=== PATIENT | male | born 1960 | race Caucasian/White ===

== ENCOUNTER 2020-05-20 20:20 | Inpatient (IN) | payer BC ==
[2020-05-20] MEDS ORDERED: DEXAMETHASONE SOD PHOSPHATE 4 MG/1 ML VIAL IVPUSH ONE (22:07)
[2020-05-20 22:11] LABS: VENOUS BASE EXCESS 1.5 mmol/L (-2-2); VENOUS PH 7.401 (7.310-7.410)
[2020-05-20 22:39] LABS: BASO % 0.5 % (0-2.0); EOS % 0.3 % (0-4.5); MCH 31.9 pg (25.7-33.7); MEAN CELL VOLUME 91.3 fl (80-96); MEAN PLT VOLUME 8.2 fl (7.5-11.1); MONO % 11.5 % (3.8-10.2); NEUT % 73.7 % (42.8-82.8); PLATELET COUNT 211 K/MM3 (134-434); RBC 4.71 M/mm3 (4.00-5.60); RDW 12.9 % (11.9-15.9); WHITE BLOOD COUNT 4.7 K/mm3 (4.0-10.0)
[2020-05-20] MEDS ORDERED: DEXAMETHASONE SOD PHOSPHATE 10 MG/1 ML VIAL ONE (22:39)
[2020-05-20 22:48] LABS: CHLORIDE 100 mmol/L (98-107); INR 1.19 (0.83-1.09); POTASSIUM 3.7 mmol/L (3.5-5.1); PROTHROMBIN TIME (PATIENT) 14.3 SEC (9.7-13.0); SODIUM 133 mmol/L (136-145)
[2020-05-20 22:50] LABS: CALCIUM 8.5 mg/dL (8.5-10.1)
[2020-05-20 22:51] LABS: ACTIVATED PTT 30.3 SECONDS (25.2-36.5); ALBUMIN 3.3 g/dl (3.4-5.0); ANION GAP 6 MMOL/L (8-16); BLOOD UREA NITROGEN 19.2 mg/dL (7-18); CO2 27 mmol/L (21-32); GLUCOSE,RANDOM 107 mg/dL (74-106)
[2020-05-20 22:54] LABS: BILIRUBIN,DIRECT 0.3 mg/dL (0.0-0.2); CREATININE 0.9 mg/dL (0.55-1.3); SGOT/AST 47 U/L (15-37); SGPT/ALT 60 U/L (13-61)
[2020-05-20 22:56] LABS: BILIRUBIN,TOTAL 0.6 mg/dL (0.2-1); TOT PROT 7.2 g/dl (6.4-8.2)
[2020-05-20 22:57] LABS: ALK PHOS 79 U/L (45-117); LDH 346 U/L (87-246)
[2020-05-20 23:34] LABS: EPI CELLS 11 /uL (0-25.1); HYALINE CASTS 3 /uL (0-3.1); PH,URINE 5.5 (5.0-8.0); URINE APPEARANCE CLEAR; URINE BACTERIA 5 /uL (0-1359); URINE BILIRUBIN NEGATIVE (NEGATIVE); URINE COLOR YELLOW; URINE GLUCOSE (UA) NEGATIVE (NEGATIVE); URINE KETONE TRACE (NEGATIVE); URINE LEUK ESTERASE NEGATIVE (NEGATIVE); URINE NITRITE NEGATIVE (NEGATIVE); URINE PROTEIN 1+ (NEGATIVE); URINE RBC 9 /uL (0-23.9); URINE WBC 2 /uL (0-25.8)
[2020-05-21] MEDS ORDERED: ACETAMINOPHEN 325 MG TABLET (FP) PO PRN (00:17)
[2020-05-21 01:32] VITALS: BMI 28.9
[2020-05-21 07:42] LABS: POTASSIUM 4.7 mmol/L (3.5-5.1)
[2020-05-21 07:51] LABS: ALBUMIN 3.2 g/dl (3.4-5.0); CALCIUM 8.5 mg/dL (8.5-10.1); MAGNESIUM 2.3 mg/dL (1.8-2.4)
[2020-05-21 07:53] LABS: PHOSPHOROUS 4.3 mg/dL (2.5-4.9)
[2020-05-21 07:55] LABS: BILIRUBIN,TOTAL 0.7 mg/dL (0.2-1); TOT PROT 7.2 g/dl (6.4-8.2)
[2020-05-21 08:44] LABS: BASO % 0.3 % (0-2.0); HEMATOCRIT 42.7 % (35.4-49); MCH 32.1 pg (25.7-33.7); MEAN CELL VOLUME 91.6 fl (80-96); MEAN PLT VOLUME 8.6 fl (7.5-11.1); MONO % 5.9 % (3.8-10.2); NEUT % 83.8 % (42.8-82.8); PLATELET COUNT 223 K/MM3 (134-434); RBC 4.66 M/mm3 (4.00-5.60); RDW 12.8 % (11.9-15.9); WHITE BLOOD COUNT 3.8 K/mm3 (4.0-10.0)
[2020-05-21] MEDS ORDERED: PT OWN MED DRAWER 7, Y5N ONE ×3 (09:10→20:37)
[2020-05-21] MEDS: DEXAMETHASONE SOD PHOSPHATE 4 MG/1 ML VIAL IVPUSH SCH (09:14)
[2020-05-21] MEDS: CHOLECALCIFEROL (VIT D3) 400 UNIT (10 MCG) TABLET PO SCH (09:14)
[2020-05-21] MEDS: FAMOTIDINE 20 MG TABLET PO SCH (09:14)
[2020-05-21] MEDS: ZINC SULFATE 220 MG CAPSULE (FP) PO SCH (09:14)
[2020-05-21] MEDS: ENOXAPARIN NA (PORCINE) 40 MG/0.4 ML DISP.SYRIN SQ SCH (09:15)
[2020-05-21] MEDS: ASCORBIC ACID 250 MG TABLET (FP) PO SCH ×2 (09:24→21:04)
[2020-05-21 12:29] LABS: PLATELET ESTIMATE NORMAL
[2020-05-21] MEDS ORDERED: REMDESIVIR 200 MG in SODIUM CHLORIDE 210 ML IVPB ONE (15:00)
[2020-05-22 07:06] LABS: BASO % 0.2 % (0-2.0); EOS % 0.2 % (0-4.5); HEMOGLOBIN 15.1 GM/dL (11.7-16.9); LYMPH % 14.2 % (8-40); MCH 32.5 pg (25.7-33.7); MCHC 35.9 g/dl (32.0-35.9); MEAN CELL VOLUME 90.6 fl (80-96); MEAN PLT VOLUME 8.1 fl (7.5-11.1); MONO % 12.9 % (3.8-10.2); NEUT % 72.5 % (42.8-82.8); PLATELET COUNT 270 K/MM3 (134-434); RBC 4.63 M/mm3 (4.00-5.60); RDW 12.7 % (11.9-15.9)
[2020-05-22 08:13] LABS: BLOOD UREA NITROGEN 23.7 mg/dL (7-18); CALCIUM 8.7 mg/dL (8.5-10.1); MAGNESIUM 2.5 mg/dL (1.8-2.4)
[2020-05-22 08:16] LABS: CREATININE 0.9 mg/dL (0.55-1.3)
[2020-05-22 08:17] LABS: BILIRUBIN,TOTAL 0.5 mg/dL (0.2-1)
[2020-05-22] MEDS ORDERED: PT OWN MED DRAWER 7, Y5N ONE ×2 (09:43→20:14)
[2020-05-22] MEDS: ZINC SULFATE 220 MG CAPSULE (FP) PO SCH (09:53)
[2020-05-22] MEDS: FAMOTIDINE 20 MG TABLET PO SCH (09:53)
[2020-05-22] MEDS: guaiFENesin 200 MG/10 ML 10 ML UNIT-DOSE CUPS PO PRN (09:53)
[2020-05-22] MEDS: ASCORBIC ACID 250 MG TABLET (FP) PO SCH ×2 (09:53→21:04)
[2020-05-22] MEDS: ENOXAPARIN NA (PORCINE) 40 MG/0.4 ML DISP.SYRIN SQ SCH (09:53)
[2020-05-22] MEDS: CHOLECALCIFEROL (VIT D3) 400 UNIT (10 MCG) TABLET PO SCH (09:53)
[2020-05-22] MEDS: DEXAMETHASONE SOD PHOSPHATE 4 MG/1 ML VIAL IVPUSH SCH (09:53)
[2020-05-22] MEDS: REMDESIVIR 100 MG in SODIUM CHLORIDE 230 ML IVPB SCH (15:22)
[2020-05-23 07:31] LABS: BASO % 0.2 % (0-2.0); EOS % 0.5 % (0-4.5); HEMATOCRIT 40.8 % (35.4-49); HEMOGLOBIN 14.7 GM/dL (11.7-16.9); LYMPH % 14.9 % (8-40); MCH 32.6 pg (25.7-33.7); MCHC 35.9 g/dl (32.0-35.9); MEAN CELL VOLUME 90.7 fl (80-96); MEAN PLT VOLUME 7.9 fl (7.5-11.1); MONO % 11.1 % (3.8-10.2); NEUT % 73.3 % (42.8-82.8); PLATELET COUNT 283 K/MM3 (134-434); RDW 12.9 % (11.9-15.9); WHITE BLOOD COUNT 8.4 K/mm3 (4.0-10.0)
[2020-05-23 08:00] LABS: POTASSIUM 4.2 mmol/L (3.5-5.1)
[2020-05-23 08:05] LABS: CALCIUM 8.4 mg/dL (8.5-10.1)
[2020-05-23 08:06] LABS: ALBUMIN 2.9 g/dl (3.4-5.0); BLOOD UREA NITROGEN 21.9 mg/dL (7-18); MAGNESIUM 2.5 mg/dL (1.8-2.4)
[2020-05-23 08:09] LABS: BILIRUBIN,TOTAL 0.5 mg/dL (0.2-1); CREATININE 0.8 mg/dL (0.55-1.3); TOT PROT 6.7 g/dl (6.4-8.2)
[2020-05-23] MEDS ORDERED: PT OWN MED DRAWER 7, Y5N ONE ×2 (09:26→20:48)
[2020-05-23] MEDS: ENOXAPARIN NA (PORCINE) 40 MG/0.4 ML DISP.SYRIN SQ SCH (09:32)
[2020-05-23] MEDS: ASCORBIC ACID 250 MG TABLET (FP) PO SCH ×2 (09:32→21:12)
[2020-05-23] MEDS: FAMOTIDINE 20 MG TABLET PO SCH (09:32)
[2020-05-23] MEDS: CHOLECALCIFEROL (VIT D3) 400 UNIT (10 MCG) TABLET PO SCH (09:32)
[2020-05-23] MEDS: ZINC SULFATE 220 MG CAPSULE (FP) PO SCH (09:32)
[2020-05-23] MEDS: DEXAMETHASONE SOD PHOSPHATE 4 MG/1 ML VIAL IVPUSH SCH (09:32)
[2020-05-23] MEDS: REMDESIVIR 100 MG in SODIUM CHLORIDE 230 ML IVPB SCH (14:42)
[2020-05-24 08:53] LABS: BASO % 0.3 % (0-2.0); EOS % 0.3 % (0-4.5); HEMATOCRIT 42.9 % (35.4-49); HEMOGLOBIN 14.8 GM/dL (11.7-16.9); LYMPH % 18.9 % (8-40); MCH 31.7 pg (25.7-33.7); MCHC 34.4 g/dl (32.0-35.9); MEAN CELL VOLUME 91.9 fl (80-96); MEAN PLT VOLUME 8.2 fl (7.5-11.1); MONO % 9.8 % (3.8-10.2); NEUT % 70.7 % (42.8-82.8); PLATELET COUNT 323 K/MM3 (134-434); RBC 4.67 M/mm3 (4.00-5.60); RDW 12.5 % (11.9-15.9); WHITE BLOOD COUNT 8.2 K/mm3 (4.0-10.0)
[2020-05-24] MEDS ORDERED: PT OWN MED DRAWER 7, Y5N ONE ×2 (09:07→20:55)
[2020-05-24 09:26] LABS: POTASSIUM 4.1 mmol/L (3.5-5.1)
[2020-05-24 09:34] LABS: ALBUMIN 3.2 g/dl (3.4-5.0); BLOOD UREA NITROGEN 19.5 mg/dL (7-18)
[2020-05-24 09:35] LABS: CALCIUM 8.8 mg/dL (8.5-10.1)
[2020-05-24 09:36] LABS: MAGNESIUM 2.5 mg/dL (1.8-2.4)
[2020-05-24 09:37] LABS: CREATININE 0.8 mg/dL (0.55-1.3)
[2020-05-24 09:39] LABS: BILIRUBIN,TOTAL 0.6 mg/dL (0.2-1)
[2020-05-24] MEDS: DEXAMETHASONE SOD PHOSPHATE 4 MG/1 ML VIAL IVPUSH SCH (09:50)
[2020-05-24] MEDS: CHOLECALCIFEROL (VIT D3) 400 UNIT (10 MCG) TABLET PO SCH (09:51)
[2020-05-24] MEDS: ASCORBIC ACID 250 MG TABLET (FP) PO SCH ×2 (09:52→21:07)
[2020-05-24] MEDS: APIXABAN 5 MG TABLET PO SCH ×2 (09:52→21:06)
[2020-05-24] MEDS: FAMOTIDINE 20 MG TABLET PO SCH (09:52)
[2020-05-24] MEDS: ZINC SULFATE 220 MG CAPSULE (FP) PO SCH (09:52)
[2020-05-24] MEDS: REMDESIVIR 100 MG in SODIUM CHLORIDE 230 ML IVPB SCH (12:32)
[2020-05-25] MEDS: ZINC SULFATE 220 MG CAPSULE (FP) PO SCH (09:00)
[2020-05-25] MEDS: FAMOTIDINE 20 MG TABLET PO SCH (09:00)
[2020-05-25] MEDS: CHOLECALCIFEROL (VIT D3) 400 UNIT (10 MCG) TABLET PO SCH (09:00)
[2020-05-25] MEDS: DEXAMETHASONE SOD PHOSPHATE 4 MG/1 ML VIAL IVPUSH SCH (09:00)
[2020-05-25] MEDS: APIXABAN 5 MG TABLET PO SCH (09:00)
[2020-05-25] MEDS: guaiFENesin 200 MG/10 ML 10 ML UNIT-DOSE CUPS PO PRN (09:01)
[2020-05-25] MEDS: ASCORBIC ACID 250 MG TABLET (FP) PO SCH (09:01)
[2020-05-25] MEDS: REMDESIVIR 100 MG in SODIUM CHLORIDE 230 ML IVPB SCH (11:40)
[2020-05-25 13:36] VITALS: BP 117/70; PULSE 60; TEMP 98
[2020-05-26] MEDS ORDERED: DEXAMETHASONE 4 MG TABLET (FP) PO SCH (10:00)
== END 2020-05-25 01:30 | disposition home or self-care (01) | DRG 177 ==
LOC: JER 20:20 → UNDOADMOB 23:24 → INTOOBSV 23:24 → JERBED 23:24 → J4S 05-21 00:37 → JERBED 05-21 00:37 → OBSVTOIN 05-21 13:14
PROVIDERS: ADMIT Hospitalist; ATTEND Nurse Practitioner Acute Care
PROC: XW033E5 Introduction of Remdesivir Anti-infective into Peripheral Vein, Percutaneous Approach, New Technology Group 5 (ICD-10-PCS; principal; 2020-05-21)
DX: U07.1 COVID-19 (principal); J12.82 Pneumonia due to coronavirus disease 2019; J96.01 Acute respiratory failure with hypoxia; Z96.659 Presence of unspecified artificial knee joint
CPT/HCPCS: 36415; 71045-TC-FY; 80053; 81003; 82248; 82550; 82728; 82803; 83605; 83615; 83735; 84100; 84484; 85025; 85379; 85610; 85651; 85730; 86140; 86769; 86850; 86900; 86901; 87040; 87086; 87804; 93005; 93010; 99285-25; C9399; C9803; G0378; U0003

== ENCOUNTER 2023-11-02 13:09 | Emergency (ER) | payer OTHER, BC ==
[2023-11-02] MEDS ORDERED: LIDOCAINE 5% TOPICAL PATCH ONE (13:43)
[2023-11-02] MEDS ORDERED: ACETAMINOPHEN 325 MG TABLET (FP) ONE (13:43)
[2023-11-02] MEDS ORDERED: DIPHTH,PERTUSS(ACELL),TET 0.5 ML DISP.SYRIN IM ONE (13:44)
[2023-11-02] MEDS: ACETAMINOPHEN 500 MG TABLET (FP) PO ONE (13:52)
[2023-11-02] MEDS: LIDOCAINE 5% TOPICAL PATCH TP ONE (13:52)
[2023-11-02] MEDS: DIPHTH,PERTUSS(ACELL),TET 0.5 ML DISP.SYRIN IM ONE (13:53)
[2023-11-02 15:14] VITALS: BP 160/91; PULSE 71; RESP 16; TEMP 97.9; BMI 28.7
[2023-11-02] MEDS ORDERED: LIDOCAINE PATCH REMOVAL MC ONE (22:00)
== END 2023-11-02 14:18 | disposition home or self-care (01) ==
LOC: FER 13:09
PROC: 3E0234Z Introduction of Serum, Toxoid and Vaccine into Muscle, Percutaneous Approach (ICD-10-PCS; principal; 2023-11-02)
DX: S50.812A Abrasion of left forearm, initial encounter (principal); M54.2 Cervicalgia; V43.52XA Car driver injured in collision with other type car in traffic accident, initial encounter; Z23 Encounter for immunization
CPT/HCPCS: 90715; 99284-25